=== PATIENT | male | born 1995 | race American Indian/Alaskan Native ===

== ENCOUNTER 2018-11-12 11:48 | Emergency (ER) | payer SELFPAY ==
[2018-11-12 12:00] VITALS: BP 117/58
--- NOTE | 2018-11-12 12:46 | Emergency Department Report ---
ED ENT HPI - General Chief complaint: GI Bleed Stated complaint: NOSE BLEED/CHEST AND BACK PAIN Time Seen by Provider: 11/12/18 12:18 Source: patient Mode of arrival: Ambulatory Limitations: No Limitations - History of Present Illness Initial comments: Patient is a 22-year-old gentleman who states he woke up this morning with blood on his pillow. Patient states the blood dripping from his nose and he also was spitting some blood as well. Patient states he saw a small amount of blood several days ago when wiping after bowel movement. Patient states he occasionally gets some discomfort after he eats and his abdomen however he is pain-free at this time. The patient denies any nausea vomiting fevers or chills. - Related Data Previous Rx's Medication Instructions Recorded Last Taken Type Oxymetazoline 0.05% [Afrin] 2 spray NS BID 3 Days #1 bottle 11/12/18 Unknown Rx Allergies Allergy/AdvReac Type Severity Reaction Status Date / Time No Known Allergies Allergy Unverified 11/12/18 11:55 ED Dental HPI - General Chief complaint: GI Bleed Stated complaint: NOSE BLEED/CHEST AND BACK PAIN Time Seen by Provider: 11/12/18 12:18 Source: patient Mode of arrival: Ambulatory Limitations: No Limitations - Related Data Previous Rx's Medication Instructions Recorded Last Taken Type Oxymetazoline 0.05% [Afrin] 2 spray NS BID 3 Days #1 bottle 11/12/18 Unknown Rx Allergies Allergy/AdvReac Type Severity Reaction Status Date / Time No Known Allergies Allergy Unverified 11/12/18 11:55 ED Review of Systems ROS: Stated complaint: NOSE BLEED/CHEST AND BACK PAIN Other details as noted in HPI Comment: All other systems reviewed and negative ED Past Medical Hx - Past Medical History Previous Medical History?: Yes Additional medical history: back pain - Surgical History Past Surgical History?: No - Social History Smoking Status: Never Smoker Substance Use Type: None - Medications Home Medications: Home Medications Medication Instructions Recorded Confirmed Last Taken Type Oxymetazoline 0.05% [Afrin] 2 spray NS BID 3 Days #1 bottle 11/12/18 Unknown Rx ED Physical Exam - General Limitations: No Limitations General appearance: alert, in no apparent distress - Head Head exam: Present: atraumatic, normocephalic - Eye Eye exam: Present: normal appearance - ENT ENT exam: Present: normal orophraynx, mucous membranes moist, other (patient's bilateral turbinates are swollen with erythema. There is no active bleeding at this time.) - Neck Neck exam: Present: normal inspection - Respiratory Respiratory exam: Present: normal lung sounds bilaterally. Absent: respiratory distress, wheezes, rales, rhonchi - Cardiovascular Cardiovascular Exam: Present: regular rate, normal rhythm. Absent: systolic murmur, diastolic murmur, rubs, gallop - GI/Abdominal GI/Abdominal exam: Present: soft, normal bowel sounds. Absent: distended, tenderness, guarding, rebound - Rectal Rectal exam: Present: deferred - Extremities Exam Extremities exam: Present: normal inspection - Back Exam Back exam: Present: normal inspection - Neurological Exam Neurological exam: Present: alert, oriented X3 - Psychiatric Psychiatric exam: Present: normal affect, normal mood - Skin Skin exam: Present: warm, dry, intact, normal color. Absent: rash ED Course Vital Signs 11/12/18 11:55 Temperature 98.7 F Pulse Rate 56 L Respiratory 18 Rate Blood Pressure 117/58 O2 Sat by Pulse 99 Oximetry ED Medical Decision Making - Medical Decision Making Patient is a 22-year-old gentleman who states he had a nosebleed this morning was coughing up some blood as well. Patient does have very swollen and erythematous turbinates bilaterally. Smokes likely as a cause of the patient's epistaxis episode. This also could explain some of the bleeding that the patient is noting in his stool. Patient will be started on Afrin and given ENT follow-up. Critical care attestation.: If time is entered above; I have spent that time in minutes in the direct care of this critically ill patient, excluding procedure time. ED Disposition Clinical Impression: Epistaxis Disposition: DC-01 TO HOME OR SELFCARE Is pt being admited?: No Does the pt Need Aspirin: No Condition: Stable Instructions: Epistaxis (ED) Prescriptions: Oxymetazoline 0.05% [Afrin] 2 spray NS BID 3 Days #1 bottle Time of Disposition: 12:46
== END 2018-11-12 14:40 | disposition home or self-care (01) ==
LOC: ED 11:48
DX: R04.0 Epistaxis (principal)